=== PATIENT | female | born 1975 | race Caucasian/White ===

== ENCOUNTER 2018-11-03 09:29 | Outpatient (CLI) | payer OTHER | END 2018-11-03 09:37 | disposition home or self-care (01) | LOC: SONOGRAMA 09:29 | DX: E04.2 Nontoxic multinodular goiter (principal) ==

== ENCOUNTER 2020-01-18 09:04 | Outpatient (CLI) | payer OTHER | END 2020-01-18 09:08 | disposition home or self-care (01) | LOC: SONOGRAMA 09:04 | PROVIDERS: ATTEND Pathology Anatomic Pathology & Clinical Pathology | DX: E04.2 Nontoxic multinodular goiter (principal) ==